=== PATIENT | male | born 1975 | race Caucasian/White ===

== ENCOUNTER 2019-10-03 19:28 | Emergency (ER) | payer BC, OTHER ==
[~2019-10-03] VITALS: Ht 175.3 cm; Wt 77.1 kg
[2019-10-03 21:33] VITALS: BP 136/86
[2019-10-03] MEDS ORDERED: LIDOCAINE 1% HCL (LOCAL ANESTH.) INJ 20ML MDV ID ONE (22:15)
[2019-10-03] MEDS ORDERED: BACITRACIN TOP OINT 1 UD PKG TOP ONE (23:00)
== END 2019-10-03 23:23 | disposition home or self-care (01) ==
LOC: ER 19:30
DX: S41.112A Laceration without foreign body of left upper arm, initial encounter (principal); F41.9 Anxiety disorder, unspecified; K21.9 Gastro-esophageal reflux disease without esophagitis; W26.8XXA Contact with other sharp object(s), not elsewhere classified, initial encounter; Y93.89 Activity, other specified; Y92.89 Other specified places as the place of occurrence of the external cause; Y99.8 Other external cause status
CPT/HCPCS: 12004; 73080; 73090

== ENCOUNTER 2019-10-13 13:51 | Emergency (ER) | payer BC ==
[~2019-10-13] VITALS: Ht 175.3 cm; Wt 77.1 kg
[2019-10-13 16:53] VITALS: BP 124/93
[2019-10-13] MEDS ORDERED: traMADol HCL 50 MG TAB PO ONE (17:30)
== END 2019-10-13 18:49 | disposition home or self-care (01) ==
LOC: ER 13:51
DX: Z48.00 Encounter for change or removal of nonsurgical wound dressing (principal)
CPT/HCPCS: 73200

== ENCOUNTER 2019-10-15 02:22 | Emergency (ER) | payer BC ==
[~2019-10-15] VITALS: Ht 175.3 cm; Wt 77.1 kg
[2019-10-15] MEDS ORDERED: TETANUS-DIPTH-ACEL PERTUSSIS 0.5ML SYR Tdap IM ONE (08:45)
[2019-10-15] MEDS ORDERED: NEOMYCIN-BACITRACIN-POLYM UNITDOSE PKG TOP OINT TOP ONE (08:45)
[2019-10-15] MEDS ORDERED: LIDOCAINE 2%HCL (LOCAL ANESTH.) INJ 20ML MDV ID ONE (08:45)
[2019-10-15] MEDS ORDERED: cefTRIAXone 1GM/50ML D5W 50 ML IV ONE (08:45)
[2019-10-15] MEDS ORDERED: PROMETHAZINE HCL 25 MG/ML 1ML IV ONE (09:30)
[2019-10-15] MEDS ORDERED: MORPHINE SULF INJ 2 MG/ML SYRINGE 1ML IV ONE (09:30)
[2019-10-15] MEDS ORDERED: methylPREDNISolone SOD SUCC 125 MG/2 ML VL IV ONE (10:30)
[2019-10-15 12:05] VITALS: BP 162/86
== END 2019-10-15 13:48 | disposition home or self-care (01) ==
LOC: ER 02:22
DX: T81.33XD Disruption of traumatic injury wound repair, subsequent encounter (principal)
CPT/HCPCS: 12034; 90471; 90715; 96365; 96375; 99284; J0696; J2270; J2550; J7030; 12004

== ENCOUNTER 2019-10-18 09:29 | Emergency (ER) | payer BC ==
[~2019-10-18] VITALS: Ht 175.3 cm; Wt 77.1 kg
[2019-10-18 09:54] VITALS: BP 119/76
== END 2019-10-18 11:30 | disposition home or self-care (01) ==
LOC: ER 09:29
DX: Z48.00 Encounter for change or removal of nonsurgical wound dressing (principal); F41.9 Anxiety disorder, unspecified; K21.9 Gastro-esophageal reflux disease without esophagitis

== ENCOUNTER 2019-10-26 09:10 | Emergency (ER) | payer BC ==
[~2019-10-26] VITALS: Ht 175.3 cm; Wt 77.1 kg
[2019-10-26 09:29] VITALS: BP 119/81
== END 2019-10-26 10:47 | disposition home or self-care (01) ==
LOC: ER 09:10
DX: Z48.00 Encounter for change or removal of nonsurgical wound dressing (principal)

== ENCOUNTER → 2019-10-29 | Emergency (ER) | payer BC ==
[~2019-10-29] VITALS: Ht 175.3 cm; Wt 77.1 kg
[2019-10-29 09:03] VITALS: BP 121/78
== END | disposition home or self-care (01) ==
LOC: ER 08:59
DX: S51.012D Laceration without foreign body of left elbow, subsequent encounter (principal)

== ENCOUNTER 2022-04-16 18:52 | Inpatient (IN) | payer BC ==
[~2022-04-16] VITALS: Ht 175.3 cm; Wt 85.3 kg
[2022-04-16] MEDS ORDERED: HYDROcodone-ACET 10/325MG TAB PO ONE (19:30)
[2022-04-16] MEDS ORDERED: PIPERACILLIN-TAZOB 3.375GM 100 ML IV ONE (21:00)
[2022-04-16] MEDS ORDERED: HYDROmorphone HCL 2 MG/ML VL/or syr IV ONE (21:30)
[2022-04-16] MEDS ORDERED: D5W/SOD CHL 0.45%/KCL 20MEQ 1,000 ML IV ONE (22:15)
[2022-04-16 22:18] LABS: Basophils # (auto) 0 10 ^3/uL (0-0.2); Basophils % (auto) 0.4 % (0.0-2.0); Eosinophils # (auto) 0 10 ^3/uL (0-0.8); Eosinophils % (auto) 0.3 % (0.0-7.0); Hemoglobin 15.8 g/dL (13.5-17.5); Lymphocytes # (auto) 1.4 10 ^3/uL (0.4-5.4); Lymphocytes % (auto) 9.8 % (10.0-50.0); Mean Corpuscular Hemoglobin 32.5 pg (28.0-32.0); Mean Corpuscular Hgb Conc. 35.1 g/dL (32.0-36.0); Mean Corpuscular Volume 92.4 fL (80.0-100.0); Monocytes # (auto) 1.2 10 ^3/uL (0-1.3); Monocytes % (auto) 8.5 % (0.0-12.0); Neutrophils # (auto) 11.2 10 ^3/uL (1.6-8.6); Nucleated Red Blood Cells % 0.1 %; Red Blood Cells 4.87 10^6/uL (4.5-5.90); Red Cell Distribution Width 13.7 % (11.8-14.3); White Blood Cell 13.8 10^3/uL (4.4-10.8)
[2022-04-16 22:29] LABS: INR 0.99 (0.9-1.15)
[2022-04-16] MEDS ORDERED: MORPHINE SULFATE INJ 2 MG/ml SYRG IM ONE (22:30)
[2022-04-16 22:33] LABS: Albumin 4.2 g/dL (3.4-5.0); BUN/Creatinine Ratio 7.8; Calcium 9.3 mg/dL (8.5-10.1); Magnesium 1.7 mg/dL (1.6-2.6); Potassium 3.8 mmol/L (3.5-5.1)
[2022-04-16 22:35] LABS: Bilirubin, Total 0.9 mg/dL (0.2-1.0); Total Protein 7.1 g/dL (6.4-8.2)
[2022-04-16] MEDS ORDERED: ONDANSETRON HCL 4 MG/2 ML VIAL IV PRN (23:00)
[2022-04-17] MEDS: KETOROLAC TROMETH 60MG/2ML VIAL IM ONE ×2 (00:12→04:59)
[2022-04-17 01:24] LABS: Urine Bacteria NONE SEEN /hpf (None Seen); Urine Blood Negative /uL (Negative); Urine Mucus FEW (None Seen); Urine Specific Gravity 1.021 (1.001-1.035); Urine WBC 1 /hpf (0 - 3)
[2022-04-17] MEDS: MORPHINE SULFATE INJ 2 MG/ml SYRG IV PRN ×2 (01:39→17:40)
[2022-04-17] MEDS: PIPERACILLIN-TAZOB 3.375GM 100 ML IV SCH ×5 (05:04→23:35)
[2022-04-17 05:25] LABS: Basophils # (auto) 0 10 ^3/uL (0-0.2); Basophils % (auto) 0.2 % (0.0-2.0); Eosinophils # (auto) 0.1 10 ^3/uL (0-0.8); Eosinophils % (auto) 0.9 % (0.0-7.0); Hematocrit 40.6 % (41.0-53.0); Hemoglobin 13.8 g/dL (13.5-17.5); Lymphocytes # (auto) 2.2 10 ^3/uL (0.4-5.4); Lymphocytes % (auto) 21.7 % (10.0-50.0); Mean Corpuscular Hemoglobin 31.6 pg (28.0-32.0); Mean Corpuscular Hgb Conc. 34.1 g/dL (32.0-36.0); Mean Corpuscular Volume 92.6 fL (80.0-100.0); Monocytes % (auto) 10.1 % (0.0-12.0); Neutrophils # (auto) 6.7 10 ^3/uL (1.6-8.6); Neutrophils % (auto) 67.1 % (37.0-80.0); Nucleated Red Blood Cells % 0.1 %; Red Blood Cells 4.38 10^6/uL (4.5-5.90); Red Cell Distribution Width 13.6 % (11.8-14.3); White Blood Cell 9.9 10^3/uL (4.4-10.8)
[2022-04-17 05:45] LABS: BUN/Creatinine Ratio 8.5; Calcium 8.2 mg/dL (8.5-10.1); Potassium 3.7 mmol/L (3.5-5.1)
[2022-04-17] MEDS ORDERED: BUPIVACAINE 0.25% INJ 50ML VIAL ONE (07:32)
[2022-04-17] MEDS ORDERED: fentaNYL CITRATE 100 MCG/2 ML VL ONE (07:36)
[2022-04-17] MEDS ORDERED: MIDAZOLAM HCL 2MG/2ML 2ml VIAL (1mg/ml) ONE (07:37)
[2022-04-17] MEDS ORDERED: MEPERIDINE HCL (50 MG/ML) 1 ML VIAL ONE (07:37)
[2022-04-17] MEDS ORDERED: SUCCINYLCHOLINE CHLORIDE 20 MG/ML 10ML VIAL IV ONE (07:40)
[2022-04-17] MEDS ORDERED: PROPOFOL 10 MG/ML 20 ML IV ONE (07:40)
[2022-04-17] MEDS ORDERED: LIDOCAINE 2% JELLY 11ml (GLYDO) ONE (07:40)
[2022-04-17] MEDS ORDERED: DexAMETHasone SOD PHOS 10MG/1ML VIAL INJ ONE (07:40)
[2022-04-17] MEDS ORDERED: ePHEDrine SULFATE 50 MG/ML AMP IV PRN (07:45)
[2022-04-17] MEDS ORDERED: LABETALOL HCL 5 MG/ML 4ML SYRINGE IV PRN (07:45)
[2022-04-17] MEDS ORDERED: HYDROmorphone HCL 2 MG/ML VL/or syr IV PRN (07:45)
[2022-04-17] MEDS ORDERED: MORPHINE SULFATE 4 MG/ML SYR/VIAL IV PRN (07:45)
[2022-04-17] MEDS ORDERED: ONDANSETRON HCL 4 MG/2 ML VIAL IV PRN ×2 (07:45→12:00)
[2022-04-17] MEDS ORDERED: MIDAZOLAM HCL 2MG/2ML 2ml VIAL (1mg/ml) IV PRN (07:45)
[2022-04-17] MEDS ORDERED: POVIDONE IODINE 10 % TOPICAL OINT 30GM TOP ONE (08:23)
[2022-04-17] MEDS ORDERED: SUGAMMADEX 200mg/2ml Vial (100MG/ML) IV ONE (08:25)
[2022-04-17] MEDS ORDERED: D5W/SOD CHL 0.45%/KCL 20MEQ 1,000 ML IV ONE (08:45)
[2022-04-17] MEDS ORDERED: PANTOPRAZOLE 40 MG/10 ML VIAL INJ IV ONE (08:45)
[2022-04-17] MEDS ORDERED: MORPHINE SULFATE INJ 2 MG/ml SYRG IV PRN ×2 (08:45→17:30)
[2022-04-17 17:30] VITALS: BP 121/76
[2022-04-17 18:28] VITALS: BP 121/76
[2022-04-17] MEDS ORDERED: ZOLP12.569 PO (21:06)
[2022-04-17] MEDS ORDERED: AMLO-483 PO (21:06)
[2022-04-17] MEDS ORDERED: CITA-73 PO (21:06)
[2022-04-17] MEDS ORDERED: GAB100C PO (21:06)
[2022-04-17 22:00] VITALS: BP 143/85
[2022-04-17] MEDS ORDERED: diphenhdrAMINE HCL 50 MG/1 ML VL IV ONE (23:15)
[2022-04-18 05:00] VITALS: BP 132/81
[2022-04-18] MEDS: PIPERACILLIN-TAZOB 3.375GM 100 ML IV SCH ×2 (05:12→11:57)
[2022-04-18] MEDS: MORPHINE SULFATE INJ 2 MG/ml SYRG IV PRN ×2 (05:22→11:56)
[2022-04-18 06:41] LABS: Basophils # (auto) 0 10 ^3/uL (0-0.2); Basophils % (auto) 0.2 % (0.0-2.0); Eosinophils # (auto) 0 10 ^3/uL (0-0.8); Eosinophils % (auto) 0.3 % (0.0-7.0); Hematocrit 36.2 % (41.0-53.0); Hemoglobin 12.8 g/dL (13.5-17.5); Lymphocytes # (auto) 1.6 10 ^3/uL (0.4-5.4); Lymphocytes % (auto) 18.1 % (10.0-50.0); Mean Corpuscular Hemoglobin 32.5 pg (28.0-32.0); Mean Corpuscular Hgb Conc. 35.3 g/dL (32.0-36.0); Monocytes # (auto) 0.7 10 ^3/uL (0-1.3); Monocytes % (auto) 8.1 % (0.0-12.0); Neutrophils # (auto) 6.6 10 ^3/uL (1.6-8.6); Neutrophils % (auto) 73.3 % (37.0-80.0); Red Blood Cells 3.94 10^6/uL (4.5-5.90); Red Cell Distribution Width 13.9 % (11.8-14.3)
[2022-04-18 09:06] VITALS: BP 127/86
[2022-04-18] MEDS ORDERED: PANTOPRAZOLE 40 MG TAB PO SCH (10:00)
[2022-04-18 13:00] VITALS: BP 137/83
[2022-04-18] MEDS ORDERED: HYDR-4902 PO (13:48)
[2022-04-18] MEDS ORDERED: AMOX-277 PO (13:48)
[2022-04-18 16:45] VITALS: BP 139/85
== END 2022-04-18 18:40 | disposition home or self-care (01) | DRG 343 ==
LOC: ER 18:56 → OVERFLOW 04-17 11:46 → WEST WING 04-17 17:35
PROVIDERS: ADMIT Internal Medicine; ATTEND Internal Medicine
PROC: 0DTJ4ZZ Resection of Appendix, Percutaneous Endoscopic Approach (ICD-10-PCS; principal; 2022-04-17 07:45)
DX: K35.80 Unspecified acute appendicitis (principal); I10 Essential (primary) hypertension; D72.829 Elevated white blood cell count, unspecified; E66.9 Obesity, unspecified; Z20.822 Contact with and (suspected) exposure to COVID-19; F32.A Depression, unspecified; F41.9 Anxiety disorder, unspecified; Z87.442 Personal history of urinary calculi; Z79.899 Other long term (current) drug therapy; Z68.27 Body mass index [BMI] 27.0-27.9, adult
CPT/HCPCS: 36415; 74176; 80048; 80053; 81001; 83605; 83735; 85025; 85610; 86850; 86900; 86901; 87426; 96365; 96366; 96375; G0378; J0330; J1100; J1885; J2250; J2405; J2543; J2704; J3490